=== PATIENT | female | born 1970 | race Caucasian/White ===

== ENCOUNTER → 2017-07-21 | Day surgery (SDC) | payer OTHER ==
[2017-07-18 12:03] VITALS: BMI 19.8
[~2017-07-21] MED LIST: CHLOROPROCAINE 3% 30 MG/ML 20 ML VIAL CAUDALBLCK PRN; EPINEPHrine 1 MG/ML 1 ML AMP SQ ONE
[2017-07-21 09:04] VITALS: BP 145/94; PULSE 76; RESP 16; TEMP 97.6
--- NOTE | 2017-07-21 11:06 | USB ---
EXAMINATION TYPE: US breast aspiration single LT DATE OF EXAM: 07/21/2017 CLINICAL HISTORY: N65 Left breast lump. Abnormal ultrasound TECHNIQUE: Ultrasound guided core fine-needle aspiration of left breast. COMPARISON: Prior complete left breast ultrasound July 04, 2017 FINDINGS: The procedure of ultrasound guided fine-needle aspiration was explained to the patient. Be nefits, alternatives, and risks were discussed. An informed consent was then obtained. The patient was placed in supine positioning for imaging and for the procedure. Preprocedure ultraso und redemonstrates large cyst 1:00 position correlates to area of palpable painful lesion. The overly ing skin was prepped and draped in usual sterile fashion. Lidocaine was not utilized due to patient allergy. Under ultrasound guidance, a 20-gauge spinal needle device was used to completely aspirate lesion to resolution. The patient tolerated the procedure well without any immediate complication. The patient was kept in the radiology department for short stay after the procedure and then discharged home in stable condition. Approximately 13 cc of cloudy fluid was aspirated. No suspicious bloody component was seen. Because o f latter, fluid is not sent to pathology and clip was not placed. IMPRESSION: Successful, uncomplicated ultrasound guided fine-needle aspiration of area of concern in the left breast.
== END ==
LOC: RADUSWWP 07-14 10:35
PROVIDERS: ATTEND Pediatrics
DX: N60.02 Solitary cyst of left breast (principal); Z88.4 Allergy status to anesthetic agent
CPT/HCPCS: 76942